=== PATIENT | female | born 1955 | race Caucasian/White ===

== ENCOUNTER 2024-03-07 19:33 | Inpatient (IN) | payer MEDICARE, OTHER ==
[~2024-03-07] VITALS: Ht 162.6 cm; Wt 134.3 kg
[2024-03-07 20:13] LABS: BASOPHILS % (AUTO) 0.3 % (0.0-2.0); EOSINOPHILS # (AUTO) 0.1 K/uL (0.0-0.7); EOSINOPHILS % (AUTO) 1.4 % (0.0-6.0); HEMATOCRIT 37 % (33-45); HEMOGLOBIN 12.3 g/dL (11.5-14.8); LYMPHOCYTES # (AUTO) 0.7 K/uL (0.8-4.8); LYMPHOCYTES % (AUTO) 10.2 % (20.0-44.0); MEAN CORPUSCULAR HEMOGLOBIN 30 PG (26.0-33.0); MEAN CORPUSCULAR HGB CONC 33 g/dl (31.0-36.0); MEAN CORPUSCULAR VOLUME 91 fL (82-100); MONOCYTES % (AUTO) 14.2 % (2.0-12.0); NEUTROPHILS # (AUTO) 5.1 K/uL (1.8-8.9); NEUTROPHILS % (AUTO) 73.9 % (43.0-81.0); PLATELET COUNT (AUTO) 109 K/uL (150-450); RED BLOOD CELL COUNT(AUTO) 4.07 MIL/uL (4.0-5.2); RED CELL DISTRIBUTION WIDTH 15.1 % (11.5-15.0)
[2024-03-07] MEDS ORDERED: IPRA3AMP23 IH (20:13)
[2024-03-07] MEDS ORDERED: BISA5TAB10 PO (20:13)
[2024-03-07] MEDS ORDERED: LURA60TA3 PO (20:13)
[2024-03-07] MEDS ORDERED: AMLO-213 PO (20:13)
[2024-03-07] MEDS ORDERED: SIMV10TA98 PO (20:13)
[2024-03-07] MEDS ORDERED: MIRABEGRON PO (20:13)
[2024-03-07] MEDS ORDERED: PROG200C15 PO (20:13)
[2024-03-07] MEDS ORDERED: LORA-259 PO (20:13)
[2024-03-07] MEDS ORDERED: DIVA500T2 PO (20:13)
[2024-03-07] MEDS ORDERED: PALI9TAB PO (20:13)
[2024-03-07] MEDS ORDERED: OMEP20TA5 PO (20:13)
[2024-03-07] MEDS ORDERED: VERA80TA7 PO (20:13)
[2024-03-07] MEDS ORDERED: DORZ10DR10 EACHEYE (20:13)
[2024-03-07] MEDS ORDERED: SACC250C PO (20:13)
[2024-03-07] MEDS ORDERED: DOCU100C36 PO (20:13)
[2024-03-07] MEDS ORDERED: OXYB-58 PO (20:13)
[2024-03-07] MEDS ORDERED: SERT100T PO (20:13)
[2024-03-07] MEDS ORDERED: BUDE10.2 INH (20:13)
[2024-03-07] MEDS ORDERED: MELA3TAB41 PO (20:13)
[2024-03-07] MEDS ORDERED: TRAZ150T75 PO (20:13)
[2024-03-07] MEDS ORDERED: TRAM50TA2 PO (20:13)
[2024-03-07 20:19] LABS: CALCIUM, SERUM 8.7 mg/dL (8.5-10.1); CARBON DIOXIDE 29 mmol/L (21-32); CHLORIDE 101 mmol/L (98-107); CREATININE 0.6 mg/dL (0.6-1.3); GLUCOSE 106 mg/dL (74-106); POTASSIUM 4.3 mmol/L (3.5-5.1); SODIUM SERUM 135 mmol/L (136-145); UREA NITROGEN, BLOOD 16 mg/dL (7-18)
[2024-03-07 20:26] LABS: ALANINE AMINOTRANSFERASE 10 U/L (12-78); ALKALINE PHOSPHATASE 82 U/L (46-116); ASPARTATE AMINOTRANSFERASE 20 U/L (15-37); BILIRUBIN,DIRECT 0.1 mg/dL (0.0-0.2); BILIRUBIN,TOTAL 0.3 mg/dL (0.2-1.0); TOTAL PROTEIN, SERUM 7.3 g/dL (6.4-8.2)
[2024-03-07 20:31] LABS: ACETAMINOPHEN <10 ug/ml (10-30); ALCOHOL, BLOOD < 3 mg/dL (0-10); SALICYLATE 2.1 mg/dL (2.8-20.0)
[2024-03-07 20:35] LABS: APPEARANCE,URINE CLEAR (CLEAR); BILIRUBIN,URINE NEGATIVE (NEGATIVE); BLOOD, URINE NEGATIVE Ery/uL (NEGATIVE); COLOR,URINE YELLOW (YELLOW); KETONES,URINE NEGATIVE (NEGATIVE); LEUKOCYTE ESTERASE ,URINE NEGATIVE (NEGATIVE); NITRITE, URINE NEGATIVE (NEGATIVE); PROTEIN,URINE NEGATIVE (NEGATIVE); UGLUCOSE NEGATIVE (NEGATIVE); UROBILINOGEN,URINE 0.2 EU/dL (0.2)
[2024-03-07 21:04] LABS: AMPHETAMINE, URINE NEGATIVE (NEGATIVE); BARBITURATE, URINE NEGATIVE (NEGATIVE); BENZODIAZEPINE, URINE NEGATIVE (NEGATIVE); CANNABINOID, URINE NEGATIVE (NEGATIVE); COCCAINE, URINE NEGATIVE (NEGATIVE); OPIATE, URINE NEGATIVE (NEGATIVE); PHENCYCLIDINE SCREEN,URINE NEGATIVE (NEGATIVE)
[2024-03-08] VITALS (9 sets, daily range): BP systolic 125–146; BP diastolic 54–79; TEMP 98.2–99.3; O2SAT 88–97
[2024-03-08] MEDS: IPRATROPIUM NEB FS 0.5 MG/2.5 ML AMPUL.NEB NEB SCH (01:30)
[2024-03-08] MEDS: ALBUTEROL FS 2.5 MG/3 ML VIAL.NEB NEB SCH (01:30)
[2024-03-08] MEDS ORDERED: IPRATROPIUM NEB FS 0.5 MG/2.5 ML AMPUL.NEB ONE (02:09)
[2024-03-08] MEDS ORDERED: ALBUTEROL FS 2.5 MG/3 ML VIAL.NEB ONE (02:09)
[2024-03-08] MEDS ORDERED: TEMAZEPAM 7.5 MG CAPSULE PO PRN ×2 (03:00)
[2024-03-08] MEDS ORDERED: ACETAMINOPHEN 325 MG TABLET PO PRN (03:00)
[2024-03-08] MEDS ORDERED: MAG HYDROX/AL HYDROX/SIMETH 30 ML UDC PO PRN (03:00)
[2024-03-08] MEDS ORDERED: MAGNESIUM HYDROXIDE 30 ML UDC PO PRN (03:00)
[2024-03-08] MEDS ORDERED: LORAZEPAM 0.5 MG TABLET PO PRN ×2 (03:00)
[2024-03-08] MEDS: BLOOD SUGAR DIAGNOSTIC 1 EACH STRIP IN ONE (03:23)
[2024-03-08] MEDS: VERAPAMIL HCL 80 MG TABLET PO SCH (05:00)
[2024-03-08] MEDS ORDERED: Z GUARD REMEDY 4 OZ OINT TP PRN (06:00)
[2024-03-08] MEDS: PANTOPRAZOLE 40 MG TABLET.DR PO SCH (07:30)
[2024-03-08] MEDS: BUDESONIDE RESPULE INH 0.5 MG/2 ML AMPUL.NEB IH SCH (07:35)
[2024-03-08] MEDS ORDERED: DORZOLAMIDE OPTH 2% 10 ML BOTTLE EACHEYE SCH ×2 (09:00)
[2024-03-08] MEDS ORDERED: DIVALPROEX SODIUM 500 MG TABLET.DR PO SCH ×2 (09:00→21:00)
[2024-03-08] MEDS ORDERED: PALIPERIDONE 9 MG PO SCH (09:00)
[2024-03-08] MEDS ORDERED: Medication Not On Formulary EA (Budesonide/Formoterol Fumarate (Symbicort 160-4.5 Mcg In INH SCH (09:00)
[2024-03-08] MEDS: OXYBUTYNIN CHLORIDE ER 5 MG TAB PO SCH (09:39)
[2024-03-08] MEDS: BISACODYL (5 MG) 5 MG TABLET.DR PO SCH (09:39)
[2024-03-08] MEDS: ACIDOPHILUS/BULGARICUS 1 EACH TAB.CHEW PO SCH (09:39)
[2024-03-08] MEDS: DOCUSATE SODIUM 100 MG CAPSULE PO SCH (09:39)
[2024-03-08] MEDS: AMLODIPINE BESYLATE 10 MG TABLET PO SCH (09:40)
[2024-03-08] MEDS: GUAIFENESIN/D-METHORPHAN HB 5 ML UDC PO PRN (12:36)
[2024-03-08] MEDS: TRAMADOL HCL 50 MG TABLET PO PRN (12:37)
[2024-03-08] MEDS: risperiDONE 1 MG TABLET PO SCH (16:11)
[2024-03-08] MEDS ORDERED: TRAZODONE 50 MG TABLET PO SCH (22:00)
[2024-03-08] MEDS ORDERED: Medication Not On Formulary EA (Progesterone,Micronized (Prometrium) 200 MG) PO SCH (22:00)
[2024-03-08] MEDS ORDERED: SIMVASTATIN 20 MG TABLET PO SCH (22:00)
[2024-03-09] MEDS ORDERED: SERTRALINE HCL 50 MG TABLET PO SCH (13:00)
== END 2024-03-08 18:30 | disposition short-term general hospital (02) | DRG 885 ==
LOC: ER 19:45 → GPS 22:18
PROVIDERS: ADMIT Psychiatry & Neurology Psychosomatic Medicine
DX: F25.9 Schizoaffective disorder, unspecified (principal); J96.21 Acute and chronic respiratory failure with hypoxia; N18.9 Chronic kidney disease, unspecified; I50.33 Acute on chronic diastolic (congestive) heart failure; D68.59 Other primary thrombophilia; E44.1 Mild protein-calorie malnutrition; E87.1 Hypo-osmolality and hyponatremia; Z68.43 Body mass index [BMI] 50.0-59.9, adult; I13.0 Hypertensive heart and chronic kidney disease with heart failure and stage 1 through stage 4 chronic kidney disease, or unspecified chronic kidney disease; E66.01 Morbid (severe) obesity due to excess calories; E78.5 Hyperlipidemia, unspecified; E88.09 Other disorders of plasma-protein metabolism, not elsewhere classified; J44.9 Chronic obstructive pulmonary disease, unspecified; K21.9 Gastro-esophageal reflux disease without esophagitis; Z88.0 Allergy status to penicillin; Z99.81 Dependence on supplemental oxygen; Z20.822 Contact with and (suspected) exposure to COVID-19; G47.00 Insomnia, unspecified; Z73.6 Limitation of activities due to disability; F29 Unspecified psychosis not due to a substance or known physiological condition; G20.A1 Parkinson's disease without dyskinesia, without mention of fluctuations; F32.9 Major depressive disorder, single episode, unspecified
CPT/HCPCS: 36415; 71045-TC; 80048-TC; 80076-TC; 82962-TC; 85025-TC; 87081-TC; 94760-TC; 94799-TC; G0480

== ENCOUNTER 2024-03-08 17:37 | Inpatient (IN) | payer MEDICARE, OTHER ==
[~2024-03-08] VITALS: Ht 162.6 cm; Wt 127.9 kg
[~2024-03-08 17:37] MED LIST: AMLO-213 PO; BISA5TAB10 PO; BUDE10.2 INH; DIVA500T2 PO; DOCU100C36 PO; DORZ10DR10 EACHEYE; IPRA3AMP23 IH; LORA-259 PO; LURA60TA3 PO; MELA3TAB41 PO; MIRABEGRON PO; OMEP20TA5 PO; OXYB-58 PO; PALI9TAB PO; PROG200C15 PO; SACC250C PO; SERT100T PO; SIMV10TA98 PO; TRAM50TA2 PO; TRAZ150T75 PO; VERA80TA7 PO
[2024-03-08] MEDS ORDERED: ONDANSETRON HCL/PF 4 MG/2 ML VIAL IVP PRN (19:00)
[2024-03-08] MEDS ORDERED: ACETAMINOPHEN 325 MG TABLET PO PRN (19:00)
[2024-03-08] MEDS ORDERED: TRAMADOL HCL 50 MG TABLET PO PRN (19:00)
[2024-03-08] MEDS ORDERED: Medication Not On Formulary EA (Budesonide/Formoterol Fumarate (Symbicort 160-4.5 Mcg In INH SCH (19:00)
[2024-03-08 19:11] VITALS: BP 125/54; TEMP 98.8; O2SAT 97
[2024-03-08 20:00] VITALS: BP 128/64; TEMP 98.4; O2SAT 99
[2024-03-08] MEDS: FUROSEMIDE 40 MG/4 ML VIAL IV ONE (20:19)
[2024-03-08] MEDS: DIVALPROEX SODIUM 500 MG TABLET.DR PO SCH (20:19)
[2024-03-08] MEDS: LORAZEPAM 1 MG TABLET PO SCH (21:51)
[2024-03-08] MEDS: SIMVASTATIN 10 MG TABLET PO SCH (21:52)
[2024-03-08] MEDS: TRAZODONE 50 MG TABLET PO SCH (21:52)
[2024-03-08] MEDS: ENOXAPARIN SODIUM 40 MG/0.4 ML DISP.SYRIN SQ SCH (22:11)
[2024-03-09] VITALS (14 sets, daily range): BP systolic 120–148; BP diastolic 54–75; TEMP 97.9–99.2; O2SAT 91–99
[2024-03-09] MEDS ORDERED: Medication Not On Formulary EA (Ipratropium/Albuterol Sulfate (Duoneb 2.5-0.5 Mg/3 Ml So IH SCH
[2024-03-09] MEDS: IPRATROPIUM NEB FS 0.5 MG/2.5 ML AMPUL.NEB NEB SCH (01:06)
[2024-03-09] MEDS: ALBUTEROL FS 2.5 MG/0.5 ML VIAL.NEB NEB SCH (01:06)
[2024-03-09 06:53] LABS: BASOPHILS % (AUTO) 0.3 % (0.0-2.0); EOSINOPHILS # (AUTO) 0.1 K/uL (0.0-0.7); EOSINOPHILS % (AUTO) 1.3 % (0.0-6.0); HEMATOCRIT 36 % (33-45); HEMOGLOBIN 11.8 g/dL (11.5-14.8); LYMPHOCYTES # (AUTO) 1.1 K/uL (0.8-4.8); LYMPHOCYTES % (AUTO) 18.8 % (20.0-44.0); MEAN CORPUSCULAR HEMOGLOBIN 30 PG (26.0-33.0); MEAN CORPUSCULAR HGB CONC 33 g/dl (31.0-36.0); MEAN CORPUSCULAR VOLUME 91 fL (82-100); MONOCYTES # (AUTO) 1.1 K/uL (0.1-1.30); MONOCYTES % (AUTO) 18.9 % (2.0-12.0); NEUTROPHILS # (AUTO) 3.5 K/uL (1.8-8.9); NEUTROPHILS % (AUTO) 60.7 % (43.0-81.0); PLATELET COUNT (AUTO) 112 K/uL (150-450); WHITE BLOOD COUNT (AUTO) 5.7 K/uL (4.3-11.0)
[2024-03-09 07:08] LABS: CREATININE 0.6 mg/dL (0.6-1.3); MAGNESIUM 1.9 mg/dL (1.8-2.4); PHOSPHORUS 2.5 mg/dL (2.5-4.9); POTASSIUM 3.5 mmol/L (3.5-5.1)
[2024-03-09] MEDS: PANTOPRAZOLE 40 MG TABLET.DR PO SCH (07:30)
[2024-03-09] MEDS: BUDESONIDE RESPULE INH 0.5 MG/2 ML AMPUL.NEB NEB SCH (07:57)
[2024-03-09] MEDS ORDERED: DORZOLAMIDE OPTH 2% 10 ML BOTTLE EACHEYE SCH ×2 (09:00)
[2024-03-09] MEDS: VERAPAMIL HCL 80 MG TABLET PO SCH (09:00)
[2024-03-09] MEDS: AMLODIPINE BESYLATE 10 MG TABLET PO SCH (09:00)
[2024-03-09] MEDS: SERTRALINE HCL 50 MG TABLET PO SCH (09:00)
[2024-03-09] MEDS: OXYBUTYNIN CHLORIDE ER 5 MG TAB PO SCH (09:00)
[2024-03-09] MEDS: TIMOLOL MAL/DORZOLAM HCL OPHTH 10 ML BOTTLE EACHEYE SCH (09:00)
[2024-03-09] MEDS: BISACODYL (5 MG) 5 MG TABLET.DR PO SCH (09:00)
[2024-03-09] MEDS: DOCUSATE SODIUM 100 MG CAPSULE PO SCH (09:00)
[2024-03-09] MEDS ORDERED: IPRATROPIUM NEB FS 0.5 MG/2.5 ML AMPUL.NEB NEB PRN (11:30)
[2024-03-09] MEDS: CEFEPIME 2 GM in IV D5W 100 ML IV SCH (12:08)
[2024-03-09] MEDS: risperiDONE 1 MG TABLET PO SCH (16:09)
[2024-03-09] MEDS: TRAZODONE 50 MG TABLET PO SCH (21:13)
[2024-03-10] VITALS (16 sets, daily range): BP systolic 99–148; BP diastolic 51–73; TEMP 98.2–99.5; O2SAT 90–100
[2024-03-10 07:23] LABS: BASOPHILS % (AUTO) 0.4 % (0.0-2.0); EOSINOPHILS # (AUTO) 0.1 K/uL (0.0-0.7); EOSINOPHILS % (AUTO) 1.5 % (0.0-6.0); HEMATOCRIT 37 % (33-45); HEMOGLOBIN 12.2 g/dL (11.5-14.8); LYMPHOCYTES # (AUTO) 1.1 K/uL (0.8-4.8); LYMPHOCYTES % (AUTO) 14.8 % (20.0-44.0); MEAN CORPUSCULAR HEMOGLOBIN 30 PG (26.0-33.0); MEAN CORPUSCULAR HGB CONC 33 g/dl (31.0-36.0); MEAN CORPUSCULAR VOLUME 91 fL (82-100); MONOCYTES # (AUTO) 1.2 K/uL (0.1-1.30); MONOCYTES % (AUTO) 16.4 % (2.0-12.0); NEUTROPHILS # (AUTO) 4.9 K/uL (1.8-8.9); NEUTROPHILS % (AUTO) 66.9 % (43.0-81.0); PLATELET COUNT (AUTO) 118 K/uL (150-450); RED BLOOD CELL COUNT(AUTO) 4.11 MIL/uL (4.0-5.2); RED CELL DISTRIBUTION WIDTH 14.9 % (11.5-15.0); WHITE BLOOD COUNT (AUTO) 7.4 K/uL (4.3-11.0)
[2024-03-10 07:56] LABS: CALCIUM, SERUM 8.8 mg/dL (8.5-10.1); CREATININE 0.6 mg/dL (0.6-1.3); MAGNESIUM 2.2 mg/dL (1.8-2.4); POTASSIUM 3.8 mmol/L (3.5-5.1)
[2024-03-10] MEDS: SERTRALINE HCL 50 MG TABLET PO SCH (08:54)
[2024-03-10] MEDS: TRAZODONE 50 MG TABLET PO SCH (21:40)
[2024-03-10] MEDS: MUPIROCIN OINT 2% 22 GM TUBE NS SCH (21:43)
[2024-03-11] VITALS (13 sets, daily range): BP systolic 100–142; BP diastolic 56–73; TEMP 97.4–99.3; O2SAT 92–100
[2024-03-11] MEDS: ALBUTEROL HALF STRENGTH 1.25 MG/3 ML VIAL.NEB NEB PRN (07:42)
[2024-03-11] MEDS: VANCOMYCIN 1.5 GM in IV D5W 500 ML IV ONE (12:26)
[2024-03-11] MEDS: TRAZODONE 50 MG TABLET PO SCH (21:13)
[2024-03-12] VITALS (9 sets, daily range): BP systolic 120–136; BP diastolic 57–80; TEMP 98–98.3; O2SAT 90–99
[2024-03-12] MEDS: VANCOMYCIN 1 GM in IV D5W 250ml IV SCH (00:16)
[2024-03-12] MEDS ORDERED: RISP1TAB7 PO (12:22)
== END 2024-03-12 14:51 | DRG 291 ==
LOC: TELE1 17:37 → MEDSG1 03-11 08:53
PROVIDERS: ADMIT Nurse Practitioner Acute Care; ATTEND Nurse Practitioner Acute Care
DX: I13.0 Hypertensive heart and chronic kidney disease with heart failure and stage 1 through stage 4 chronic kidney disease, or unspecified chronic kidney disease (principal); I50.31 Acute diastolic (congestive) heart failure; J96.21 Acute and chronic respiratory failure with hypoxia; E44.1 Mild protein-calorie malnutrition; D68.59 Other primary thrombophilia; Z68.43 Body mass index [BMI] 50.0-59.9, adult; F25.0 Schizoaffective disorder, bipolar type; F32.9 Major depressive disorder, single episode, unspecified; E88.09 Other disorders of plasma-protein metabolism, not elsewhere classified; E78.5 Hyperlipidemia, unspecified; C44.319 Basal cell carcinoma of skin of other parts of face; E66.01 Morbid (severe) obesity due to excess calories; G47.00 Insomnia, unspecified; G20.A1 Parkinson's disease without dyskinesia, without mention of fluctuations; J44.9 Chronic obstructive pulmonary disease, unspecified; K21.9 Gastro-esophageal reflux disease without esophagitis; Z88.0 Allergy status to penicillin; Z88.3 Allergy status to other anti-infective agents
CPT/HCPCS: 36415; 80048-TC; 80061-TC; 83735-TC; 84100-TC; 85025-TC; 87081-TC; 92526; 92611-TC; 93307-TC; 94760-TC; 94761-TC; 94799-TC; 97110-TC; 97116-TC; 97530-TC; A4223; G0378; J0692; J1650; J1940; J3370; J3371; J7050; J7060